=== PATIENT | male | born 1985 | race Two or more races ===

== ENCOUNTER 2017-02-01 01:50 | Emergency (ER) | payer SELFPAY ==
[~2017-02-01] VITALS: Ht 170.2 cm; Wt 97.5 kg
[2017-02-01 02:15] VITALS: BP 131/86
[2017-02-01 03:13] LABS: Basophils # (auto) 0.1 uL; Basophils % (auto) 1.2 % (0.0-2.0); DEFINITIVE VIEW TRANSMISSION; Eosinophils # (auto) 1.1 uL; Eosinophils % (auto) 9.8 % (0.0-7.0); Hematocrit 42.5 % (41.0-53.0); Lymphocytes # (auto) 2.6 uL; Lymphocytes % (auto) 22.6 % (10.0-50.0); Mean Corpuscular Hemoglobin 28.7 pg (28.0-32.0); Mean Corpuscular Volume 86.9 fL (80.0-100.0); Mean Platelet Volume 7.8 fL (7.4-10.4); Monocytes # (auto) 0.8 uL; Neutrophils # (auto) 6.9 uL; Neutrophils % (auto) 59.4 % (37.0-80.0); Platelet Count (auto) 380 10^3/uL (140-450); Red Cell Distribution Width 15.1 % (11.6-16.0); White Blood Cell 11.7 10^3/uL (4.4-10.8)
[2017-02-01 03:34] LABS: Albumin 3.5 g/dL (3.4-5.0); BUN/Creatinine Ratio 18.9; Calcium 8.6 mg/dL (8.5-10.1); Potassium 3.8 mmol/L (3.5-5.1)
[2017-02-01 03:36] LABS: Bilirubin, Total 0.3 mg/dL (0.2-1.0); Total Protein 7.6 g/dL (6.4-8.2)
[2017-02-01 04:45] LABS: Urine Bilirubin Negative (Negative); Urine Blood Negative /uL (Negative); Urine Color Yellow (Yellow); Urine Glucose Normal (Normal); Urine Ketone Negative (Negative); Urine Nitrite Negative (Negative); Urine RBC 2 /hpf (0 - 3); Urine Squamous Epithelial Cell FEW /hpf (<5); Urine Urobilinogen Normal (Negative); Urine pH 6.5 (5.0-8.0)
== END 2017-02-01 06:47 | disposition left against medical advice (07) ==
LOC: ER 01:53
DX: M54.5 Low back pain (principal); Z53.21 Procedure and treatment not carried out due to patient leaving prior to being seen by health care provider
CPT/HCPCS: 36415; 80053; 81001; 85025